=== PATIENT | male | born 2000 | race Caucasian/White ===

== ENCOUNTER 2024-08-29 08:32 | Emergency (ER) | payer OTHER ==
[~2024-08-29] VITALS: Ht 185.4 cm; Wt 87.0 kg
[2024-08-29] MEDS ORDERED: NOVOLOG100 UNIT/2 SUB-Q (09:11)
[2024-08-29 10:00] VITALS: BP 147/78
== END 2024-08-29 10:00 | disposition home or self-care (01) ==
LOC: ED 08:32
DX: S93.402A Sprain of unspecified ligament of left ankle, initial encounter (principal); W01.0XXA Fall on same level from slipping, tripping and stumbling without subsequent striking against object, initial encounter; Z79.4 Long term (current) use of insulin
CPT/HCPCS: 73610; 73630; 99283